=== PATIENT | male | born 1945 | race Caucasian/White ===

== ENCOUNTER 2020-06-28 06:58 | Inpatient (IN) | payer MEDICARE, OTHER ==
[~2020-06-28] VITALS: Ht 182.8 cm; Wt 85.7 kg
[2020-06-28] VITALS (8 sets, daily range): BP systolic 141–198; BP diastolic 56–93
[~2020-06-28 06:58] MED LIST: AMINOPHYLLIN200 MG PO; ASPIRIN81 M1 PO; ATENOLOL PO; ATENOLOL100 M1 PO; ATORVASTATIN CA40 M1 PO; CITALOPRAM20 MG PO; FINASTERIDE5 M1 PO; FISH OIL500 M1 PO; GABAPENTIN100 M2 PO; PRILOSEC40 MG PO; PROTONIX20 MG PO; TRAMADOL HCL50 MG PO; VALIUM5 MG PO; VITAMIN D-32000 UNI1 PO; [UNRECOGNIZED DRUG - OTHER] PO
[2020-06-28 07:58] LABS: BASO % 0.3 % (0.0-1.0); EOS % 0.3 % (1.0-4.0); HEMATOCRIT 47.2 % (42.0-52.0); LYMPH # 0.7 10*3/uL (1.3-4.4); LYMPH % 6.3 % (27.0-41.0); MEAN CELL VOLUME 92.4 fl (80.0-94.0); MEAN CORPUSCULAR HGB 30.1 pg (27.0-31.0); MEAN CORPUSCULAR HGB CONC 32.6 g/dl (33.0-37.0); MEAN PLATELET VOLUME 9.9 fl (9.6-12.3); MONO # 0.6 10*3/uL (0.1-1.0); MONO % 5.8 % (3.0-9.0); NEUT # 9.2 10*3/uL (2.3-7.9); PLATELET COUNT AUTOMATED 170 10*3/uL (130-400); RED BLOOD COUNT 5.11 10*6/uL (4.50-5.90); RED CELL DISTRI WIDTH 13.2 % (0-14.5); WHITE BLOOD COUNT 10.6 10*3/uL (4.8-10.8)
[2020-06-28 08:10] LABS: ACT PARTIAL THROMBO TIME 27.6 SECONDS (20.0-32.1)
[2020-06-28 08:11] LABS: ALBUMIN 3.4 gm/dl (3.1-4.5); ALKALINE PHOSPHATASE 122 U/L (45-117); BUN 17 mg/dl (7-24); CHLORIDE 103 mmol/L (98-107); CREATININE 1.29 mg/dL (0.70-1.30); LDH 103 U/L (87-241); POTASSIUM 5.1 mmol/L (3.5-5.1); SGOT/AST 13 IU/L (3-35); SGPT/ALT 15 U/L (12-78); SODIUM 134 mmol/L (136-145); TOTAL PROTEIN 7.3 gm/dL (6.4-8.2)
[2020-06-28 08:12] LABS: TROPONIN I < 0.015 ng/ml (<0.045)
--- NOTE | 2020-06-28 13:50 | NUR ---
PT COMPLAINS OF HEARTBURN AND REQUESTS TUMS. DR. GOODSON NOTIFIED.
--- NOTE | 2020-06-28 22:00 | NUR ---
PT MEDICATED W/VALIUM FOR C/O ANXIETY. PT ASSISTED TO BR W/WALKER. GAIT UNSTEADY, EXTREMETIES VERY STIFF. PT INCONTINENT OF URINE AND BM. INCONTINENCE CARE GIVEN AND BED LINENS CHANGED. ATENOLOL GIVEN FOR HIGH BP. WILL RECHECK IN 1 HR. CALL LIGHT IN REACH. BED ALARM ON.
--- NOTE | 2020-06-28 23:00 | NUR ---
PT RESTING QUIETLY IN BED AT THIS TIME. PRN VALIUM EFFECTIVE FOR RELIEF OF ANXIETY. PT RESTING QUIETLY IN BED VIEWED ON CAMERA. CALL LIGHT IN REACH.
--- NOTE | 2020-06-29 02:00 | NUR ---
PT RESTING QUIETLY IN BED. NO S/S OF DISTRESS NOTED. CALL LIGHT IN REACH.
[2020-06-29 06:09] LABS: BASO % 0.2 % (0.0-1.0); EOS # 0.1 10*3/uL (0.0-0.4); EOS % 0.8 % (1.0-4.0); HEMATOCRIT 44.4 % (42.0-52.0); LYMPH # 1.2 10*3/uL (1.3-4.4); LYMPH % 12.2 % (27.0-41.0); MEAN CELL VOLUME 93.1 fl (80.0-94.0); MEAN CORPUSCULAR HGB 30.6 pg (27.0-31.0); MEAN CORPUSCULAR HGB CONC 32.9 g/dl (33.0-37.0); MEAN PLATELET VOLUME 9.9 fl (9.6-12.3); MONO # 0.8 10*3/uL (0.1-1.0); MONO % 7.9 % (3.0-9.0); NEUT # 7.6 10*3/uL (2.3-7.9); NEUT % 78.6 % (47.0-73.0); PLATELET COUNT AUTOMATED 174 10*3/uL (130-400); RED BLOOD COUNT 4.77 10*6/uL (4.50-5.90); RED CELL DISTRI WIDTH 13.6 % (0-14.5); WHITE BLOOD COUNT 9.7 10*3/uL (4.8-10.8)
[2020-06-29 06:31] LABS: POTASSIUM 4.2 mmol/L (3.5-5.1)
[2020-06-29 06:40] LABS: ALBUMIN 3.3 gm/dl (3.1-4.5); CREATININE 1.45 mg/dL (0.70-1.30); TOTAL PROTEIN 7.2 gm/dL (6.4-8.2)
[2020-06-29 08:00] VITALS: BP 133/77
--- NOTE | 2020-06-29 08:38 | NUR ---
Job Setter called to speak to patient via phone. Patient states lives at home alone with his family checking in on him. There are 0 steps in the home. Physician: [facility]: [place] or [facility] for short term medications Home health services: none Patient's level of ADLs: MINIMAL ASSIST Patient has working utilities: yes DME: walker, wheelchair Follow-up physician's appointment after d/c: will be made by the hospitalist nurse director upon discharge Does patient want to access PORTAL?: no Discharge plan discussed with patient. He lives at home alone with his family checking in on him. He states he is independent in his ADLs and either ambulates with a walker or gets around in a wheelchair. Discussed home health care services and he declined. CM will continue to follow for any discharge planning needs. When medically stable he will be discharged to home. He states his daughter will provide transportation on discharge. LUZMARIA SHELBY
[2020-06-29 12:00] VITALS: BP 148/66
[2020-06-29] MEDS ORDERED: LEVOFLOXACIN500 MG PO (14:28)
[2020-06-29] MEDS ORDERED: MUCUS RELIEF600 MG PO (14:28)
--- NOTE | 2020-06-29 16:04 | NUR ---
PATIENT DISCHARGED TO HOME.
== END 2020-06-29 16:25 | disposition home or self-care (01) | DRG 194 ==
LOC: ED 06:58 → EDHOLD 09:35 → 4E 09:55
PROVIDERS: Emergency Medicine; Internal Medicine; ADMIT Internal Medicine; ATTEND Internal Medicine
DX: J18.9 Pneumonia, unspecified organism (principal); E87.1 Hypo-osmolality and hyponatremia; J45.909 Unspecified asthma, uncomplicated; Z20.828 Contact with and (suspected) exposure to other viral communicable diseases; R73.9 Hyperglycemia, unspecified; I10 Essential (primary) hypertension; E78.5 Hyperlipidemia, unspecified; F32.9 Major depressive disorder, single episode, unspecified; F41.9 Anxiety disorder, unspecified; F17.210 Nicotine dependence, cigarettes, uncomplicated; G89.29 Other chronic pain; N40.0 Benign prostatic hyperplasia without lower urinary tract symptoms; E66.9 Obesity, unspecified; Z83.3 Family history of diabetes mellitus; Z88.8 Allergy status to other drugs, medicaments and biological substances; Z82.49 Family history of ischemic heart disease and other diseases of the circulatory system; Z68.27 Body mass index [BMI] 27.0-27.9, adult

== ENCOUNTER 2022-02-22 11:41 | Emergency (ER) | payer OTHER ==
[~2022-02-22] VITALS: Ht 182.8 cm; Wt 89.4 kg
[~2022-02-22 11:41] MED LIST changes: +LEVOFLOXACIN500 MG PO; +MUCUS RELIEF600 MG PO
[2022-02-22 12:16] LABS: BASO % 0.4 % (0.0-1.0); EOS # 0.1 10*3/uL (0.0-0.4); EOS % 1.3 % (1.0-4.0); HEMATOCRIT 44.8 % (42.0-52.0); LYMPH # 0.8 10*3/uL (1.3-4.4); MEAN CORPUSCULAR HGB 30.2 pg (27.0-31.0); MEAN CORPUSCULAR HGB CONC 32.8 g/dl (33.0-37.0); MEAN PLATELET VOLUME 9.9 fl (9.6-12.3); MONO # 0.6 10*3/uL (0.1-1.0); MONO % 6.5 % (3.0-9.0); NEUT # 8.1 10*3/uL (2.3-7.9); NEUT % 83.5 % (47.0-73.0); PLATELET COUNT AUTOMATED 191 10*3/uL (130-400); RED BLOOD COUNT 4.87 10*6/uL (4.50-5.90); RED CELL DISTRI WIDTH 13.6 % (0-14.5); WHITE BLOOD COUNT 9.7 10*3/uL (4.8-10.8)
[2022-02-22 12:30] LABS: BILIRUBIN Negative (Negative); BLOOD 2+ (Negative); CLARITY Clear (Clear); COLOR Yellow (Yellow); GLUCOSE Negative (Negative); KETONE Negative (Negative); LEUKO ESTERASE 2+ (Negative); NITRITE Negative (Negative)
[2022-02-22 12:33] LABS: CREATININE 1.49 mg/dL (0.70-1.30); POTASSIUM 5.1 mmol/L (3.5-5.1); TOTAL PROTEIN 7.3 gm/dL (6.4-8.2)
[2022-02-22 12:56] LABS: BACTERIA 1+; RBC 31-40 rbc/hpf (0-2); WBC 16-20 wbc/hpf (0-5)
== END 2022-02-22 13:13 | disposition home or self-care (01) ==
LOC: ED 11:41
PROVIDERS: Emergency Medicine
DX: R33.9 Retention of urine, unspecified (principal); K59.00 Constipation, unspecified; I10 Essential (primary) hypertension; E78.5 Hyperlipidemia, unspecified; F17.210 Nicotine dependence, cigarettes, uncomplicated; Z88.8 Allergy status to other drugs, medicaments and biological substances; Z79.899 Other long term (current) drug therapy; Z79.82 Long term (current) use of aspirin

== ENCOUNTER 2023-02-09 10:25 | Emergency (ER) | payer OTHER ==
[~2023-02-09] VITALS: Ht 182.8 cm; Wt 84.8 kg
[2023-02-09] MEDS ORDERED: CYCLOBENZAPRINE10 MG PO (10:51)
[2023-02-09 11:23] LABS: BILIRUBIN Negative (Negative); BLOOD 3+ (Negative); CLARITY Cloudy (Clear); COLOR Yellow (Yellow); GLUCOSE Negative (Negative); KETONE Negative (Negative); LEUKO ESTERASE 3+ (Negative); NITRITE Negative (Negative); PH 7.5 (4.5-8.0); SPECIFIC GRAVITY 1.015 (1.001-1.030)
[2023-02-09 11:45] LABS: BACTERIA 4+; RBC TNTC rbc/hpf (0-2); WBC 41-50 wbc/hpf (0-5)
[2023-02-09] MEDS ORDERED: CEFDINIR300 MG PO (11:46)
== END 2023-02-09 12:18 | disposition home or self-care (01) ==
LOC: ED 10:25
PROVIDERS: Emergency Medicine
DX: N39.0 Urinary tract infection, site not specified (principal); M54.50 Low back pain, unspecified; B96.89 Other specified bacterial agents as the cause of diseases classified elsewhere; I10 Essential (primary) hypertension; Z88.8 Allergy status to other drugs, medicaments and biological substances; Z98.890 Other specified postprocedural states; F17.200 Nicotine dependence, unspecified, uncomplicated

== ENCOUNTER 2024-01-19 21:33 | Inpatient (IN) | payer OTHER ==
[~2024-01-19] VITALS: Ht 182.8 cm; Wt 82.6 kg
[~2024-01-19 21:33] MED LIST changes: +AMLODIPINE BESYL5 MG PO; +CEFDINIR300 MG PO; +CYCLOBENZAPRINE10 MG PO; +LISINOPRIL10 M1 PO; +METOPROLOL SUCC25 M2 PO; +NEURONTIN100 MG PO; +PEPCID20 MG PO; +VITAMIN B-12100 MCG PO; +ZITHROMAX250 MG PO
[2024-01-19 21:43] VITALS: BP 116/72
[2024-01-19 22:43] LABS: HEMATOCRIT 43.5 % (42.0-52.0); MANUAL DIFF REFLEX YES; MEAN CELL VOLUME 96.5 fl (80.0-94.0); MEAN CORPUSCULAR HGB 29.9 pg (27.0-31.0); MEAN PLATELET VOLUME 10.3 fl (9.6-12.3); PLATELET COUNT AUTOMATED 164 10*3/uL (130-400); RED BLOOD COUNT 4.51 10*6/uL (4.50-5.90); RED CELL DISTRI WIDTH 13.5 % (0-14.5); WHITE BLOOD COUNT 9.9 10*3/uL (4.8-10.8)
[2024-01-19] MEDS ORDERED: Acetaminophen/Hydrocodone 5 MG/325 MG TABLET PO ONE (22:50)
[2024-01-19 23:04] LABS: POTASSIUM 4.7 mmol/L (3.4-5.1)
[2024-01-19 23:05] LABS: BILIRUBIN Negative (Negative); BLOOD 2+ (Negative); CLARITY Clear (Clear); COLOR Yellow (Yellow); GLUCOSE Negative (Negative); KETONE Negative (Negative); LEUKO ESTERASE 2+ (Negative); NITRITE Negative (Negative)
[2024-01-19 23:06] LABS: BASOPHILS 1 % (0-1); PLATELET SUFFICIENCY NORMAL (NORMAL); TOTAL CELLS COUNTED 100 #CELLS
[2024-01-19 23:30] LABS: BACTERIA 1+; RBC 31-40 rbc/hpf (0-2); WBC 41-50 wbc/hpf (0-5)
[2024-01-20] MEDS ORDERED: FAMOTIDINE 50 ML IV ONE (01:25)
[2024-01-20] MEDS ORDERED: Ceftriaxone Sodium 1 GM/10 ML SYR IV ONE (01:25)
[2024-01-20] MEDS ORDERED: Enoxaparin Sodium 100 MG/ML SYR SC ONE (02:15)
[2024-01-20] MEDS ORDERED: AZITHROMYCIN 250 ML IV ONE (03:30)
[2024-01-20] MEDS ORDERED: ACETAMINOPHEN 325 MG TAB PO PRN (04:00)
[2024-01-20] MEDS ORDERED: BISACODYL 5 MG TAB PO PRN (04:00)
[2024-01-20] MEDS ORDERED: HEPARIN SODIUM 250 ML IV SCH (04:10)
[2024-01-20 04:45] VITALS: BP 161/70
[2024-01-20 06:30] LABS: ACT PARTIAL THROMBO TIME 41.6 SECONDS (20.0-32.1)
[2024-01-20 06:34] LABS: BASO % 0.3 % (0.0-1.0); EOS % 0.1 % (1.0-4.0); HEMATOCRIT 40.8 % (42.0-52.0); LYMPH # 0.7 10*3/uL (1.3-4.4); LYMPH % 6.8 % (27.0-41.0); MEAN CELL VOLUME 95.8 fl (80.0-94.0); MEAN CORPUSCULAR HGB 29.6 pg (27.0-31.0); MEAN CORPUSCULAR HGB CONC 30.9 g/dl (33.0-37.0); MEAN PLATELET VOLUME 10.8 fl (9.6-12.3); MONO # 0.9 10*3/uL (0.1-1.0); MONO % 8.7 % (3.0-9.0); NEUT # 8.1 10*3/uL (2.3-7.9); NEUT % 83.7 % (47.0-73.0); PLATELET COUNT AUTOMATED 170 10*3/uL (130-400); RED BLOOD COUNT 4.26 10*6/uL (4.50-5.90); RED CELL DISTRI WIDTH 13.7 % (0-14.5); WHITE BLOOD COUNT 9.7 10*3/uL (4.8-10.8)
[2024-01-20 06:42] LABS: FREE T4 1.11 ng/dl (0.89-1.76); POTASSIUM 4.1 mmol/L (3.4-5.1); TOTAL PROTEIN 6.6 gm/dL (6.0-8.0)
[2024-01-20 06:45] LABS: VITAMIN D, 25-HYDROXY 130.5 ng/mL (30-100)
[2024-01-20 08:00] VITALS: BP 150/61
[2024-01-20] MEDS ORDERED: DIAZEPAM 5 MG TAB PO PRN (09:55)
[2024-01-20] MEDS ORDERED: GABAPENTIN 100 MG CAP PO SCH (10:00)
[2024-01-20] MEDS ORDERED: amLODIPine besylate 5 MG TAB PO SCH (10:00)
[2024-01-20] MEDS ORDERED: SODIUM CHLORIDE 0.9% 1,000 ML IV ONE (10:00)
[2024-01-20] MEDS ORDERED: CYANOCOBALAMIN 100 MCG TAB PO SCH (10:00)
[2024-01-20] MEDS ORDERED: LISINOPRIL 10 MG TAB PO SCH (10:00)
[2024-01-20] MEDS ORDERED: ASPIRIN ENTERIC COATED 81 MG TAB PO SCH (10:00)
[2024-01-20] MEDS ORDERED: GUAIFENESIN 600 MG TAB ER PO SCH (10:00)
[2024-01-20] MEDS ORDERED: FAMOTIDINE 20 MG TAB PO SCH (10:00)
[2024-01-20] MEDS ORDERED: Cholecalciferol 2,000 UNIT TABLET (50 MCG) PO SCH (10:00)
[2024-01-20] MEDS ORDERED: FINASTERIDE 5 MG TAB PO SCH (10:00)
[2024-01-20] MEDS ORDERED: CITALOPRAM 20 MG TAB PO SCH (10:00)
[2024-01-20] MEDS ORDERED: CHAIR CUSHION DEVICE ONE (11:12)
[2024-01-20] MEDS ORDERED: HEEL PROTECTOR DEVICE ONE (11:12)
[2024-01-20] MEDS ORDERED: Metoprolol Tartrate 25 MG TAB PO SCH (11:40)
[2024-01-20 12:00] VITALS: BP 160/68
[2024-01-20] MEDS ORDERED: Enoxaparin Sodium 80 MG/0.8 ML SYR SC SCH (12:00)
[2024-01-20] MEDS ORDERED: IOHEXOL 350 MG/ML 100 ML VIAL IV ONE (12:55)
[2024-01-20] MEDS ORDERED: SODIUM CHLORIDE 0.9% 100 ML BAG IV ONE (12:55)
[2024-01-20 16:00] VITALS: BP 152/62
[2024-01-20] MEDS ORDERED: Technetium Tc 99M Tetrofosmi 0.23 MG KIT IJ SCH (16:15)
[2024-01-20 20:00] VITALS: BP 166/63
[2024-01-20] MEDS ORDERED: Ceftriaxone Sodium 1 GM in SYRINGE INFUSION 10 ML IV SCH (22:00)
[2024-01-20] MEDS ORDERED: AZITHROMYCIN 250 ML IV SCH (23:00)
[2024-01-21] VITALS: BP 140/64
[2024-01-21 05:58] LABS: BASO # 0.1 10*3/uL (0.0-0.1); BASO % 0.8 % (0.0-1.0); EOS # 0.1 10*3/uL (0.0-0.4); EOS % 1.9 % (1.0-4.0); HEMATOCRIT 39.2 % (42.0-52.0); LYMPH % 16.6 % (27.0-41.0); MEAN CELL VOLUME 96.8 fl (80.0-94.0); MEAN CORPUSCULAR HGB 30.4 pg (27.0-31.0); MEAN CORPUSCULAR HGB CONC 31.4 g/dl (33.0-37.0); MONO # 0.7 10*3/uL (0.1-1.0); NEUT # 4.2 10*3/uL (2.3-7.9); NEUT % 67.4 % (47.0-73.0); PLATELET COUNT AUTOMATED 154 10*3/uL (130-400); RED BLOOD COUNT 4.05 10*6/uL (4.50-5.90); RED CELL DISTRI WIDTH 13.9 % (0-14.5); WHITE BLOOD COUNT 6.2 10*3/uL (4.8-10.8)
[2024-01-21 08:00] VITALS: BP 162/62
[2024-01-21] MEDS ORDERED: Enoxaparin Sodium 40 MG/0.4 ML SYR SC SCH (10:00)
[2024-01-21 12:39] VITALS: BP 140/62
[2024-01-21] MEDS ORDERED: PERFLUTREN PROTEIN-A MICROSPHR 3 ML VIAL IV ONE (14:24)
[2024-01-21 16:00] VITALS: BP 148/62
[2024-01-21 20:00] VITALS: BP 182/75
[2024-01-22] VITALS: BP 146/74
[2024-01-22 05:38] LABS: POTASSIUM 4.7 mmol/L (3.4-5.1)
[2024-01-22 06:09] LABS: BASO % 0.5 % (0.0-1.0); EOS # 0.1 10*3/uL (0.0-0.4); HEMATOCRIT 40.8 % (42.0-52.0); LYMPH # 0.7 10*3/uL (1.3-4.4); LYMPH % 8.8 % (27.0-41.0); MEAN CELL VOLUME 96.2 fl (80.0-94.0); MEAN CORPUSCULAR HGB 30.2 pg (27.0-31.0); MEAN CORPUSCULAR HGB CONC 31.4 g/dl (33.0-37.0); MEAN PLATELET VOLUME 11.2 fl (9.6-12.3); MONO # 0.9 10*3/uL (0.1-1.0); MONO % 11.3 % (3.0-9.0); NEUT # 6.3 10*3/uL (2.3-7.9); NEUT % 78.2 % (47.0-73.0); PLATELET COUNT AUTOMATED 173 10*3/uL (130-400); RED BLOOD COUNT 4.24 10*6/uL (4.50-5.90); RED CELL DISTRI WIDTH 13.5 % (0-14.5); WHITE BLOOD COUNT 8.1 10*3/uL (4.8-10.8)
[2024-01-22 08:00] VITALS: BP 175/74
[2024-01-22] MEDS ORDERED: Piperacillin Sodium/Tazobact 50 ML IV SCH (10:05)
[2024-01-22 12:00] VITALS: BP 152/70
[2024-01-22 16:00] VITALS: BP 152/63
[2024-01-22 20:00] VITALS: BP 196/81
[2024-01-22 20:30] VITALS: BP 168/78
[2024-01-22] MEDS ORDERED: hydrALAZINE hydrochloride 20 MG/ML VIAL IV ONE (20:35)
[2024-01-23] VITALS: BP 164/66
[2024-01-23 01:15] VITALS: BP 148/62
[2024-01-23 06:38] LABS: BUN 24 mg/dl (9-23); CHLORIDE 105 mmol/L (98-107)
[2024-01-23 06:41] LABS: POTASSIUM 3.7 mmol/L (3.4-5.1)
[2024-01-23 07:02] LABS: BASO % 0.7 % (0.0-1.0); EOS # 0.2 10*3/uL (0.0-0.4); EOS % 3.8 % (1.0-4.0); HEMATOCRIT 40.9 % (42.0-52.0); LYMPH % 16.7 % (27.0-41.0); MEAN CORPUSCULAR HGB 29.7 pg (27.0-31.0); MEAN CORPUSCULAR HGB CONC 31.5 g/dl (33.0-37.0); MEAN PLATELET VOLUME 10.3 fl (9.6-12.3); MONO # 0.7 10*3/uL (0.1-1.0); MONO % 12.1 % (3.0-9.0); NEUT % 66.4 % (47.0-73.0); PLATELET COUNT AUTOMATED 188 10*3/uL (130-400); RED BLOOD COUNT 4.35 10*6/uL (4.50-5.90); RED CELL DISTRI WIDTH 13.4 % (0-14.5)
[2024-01-23 08:00] VITALS: BP 190/77
[2024-01-23] MEDS ORDERED: LISINOPRIL 20 MG TAB PO SCH (10:00)
[2024-01-23 12:00] VITALS: BP 165/64
[2024-01-23] MEDS ORDERED: Cyclobenzaprine Hydrochlorid 10 MG TAB PO PRN (13:10)
[2024-01-23 16:00] VITALS: BP 142/61
[2024-01-23 20:00] VITALS: BP 122/57
[2024-01-24] VITALS: BP 149/57
[2024-01-24 06:34] LABS: BASO % 0.4 % (0.0-1.0); EOS # 0.3 10*3/uL (0.0-0.4); HEMATOCRIT 40.5 % (42.0-52.0); LYMPH % 14.7 % (27.0-41.0); MEAN CELL VOLUME 93.5 fl (80.0-94.0); MEAN CORPUSCULAR HGB CONC 32.1 g/dl (33.0-37.0); MEAN PLATELET VOLUME 10.9 fl (9.6-12.3); MONO # 0.8 10*3/uL (0.1-1.0); MONO % 11.2 % (3.0-9.0); NEUT # 4.7 10*3/uL (2.3-7.9); NEUT % 69.4 % (47.0-73.0); PLATELET COUNT AUTOMATED 207 10*3/uL (130-400); RED BLOOD COUNT 4.33 10*6/uL (4.50-5.90); RED CELL DISTRI WIDTH 13.4 % (0-14.5); WHITE BLOOD COUNT 6.8 10*3/uL (4.8-10.8)
[2024-01-24 08:00] VITALS: BP 155/70
[2024-01-24 12:00] VITALS: BP 129/62
[2024-01-24 16:00] VITALS: BP 153/60
[2024-01-24 20:00] VITALS: BP 165/64
[2024-01-24] MEDS ORDERED: LEVOFLOXACIN750 M2 PO (21:56)
[2024-01-25] VITALS: BP 155/67
[2024-01-25 06:12] LABS: BASO # 0.1 10*3/uL (0.0-0.1); BASO % 0.7 % (0.0-1.0); EOS # 0.4 10*3/uL (0.0-0.4); EOS % 4.9 % (1.0-4.0); HEMATOCRIT 42.6 % (42.0-52.0); LYMPH # 1.3 10*3/uL (1.3-4.4); LYMPH % 17.4 % (27.0-41.0); MEAN CELL VOLUME 95.3 fl (80.0-94.0); MEAN CORPUSCULAR HGB CONC 31.5 g/dl (33.0-37.0); MEAN PLATELET VOLUME 10.5 fl (9.6-12.3); MONO # 0.7 10*3/uL (0.1-1.0); NEUT # 4.9 10*3/uL (2.3-7.9); NEUT % 66.5 % (47.0-73.0); PLATELET COUNT AUTOMATED 237 10*3/uL (130-400); RED BLOOD COUNT 4.47 10*6/uL (4.50-5.90); RED CELL DISTRI WIDTH 13.3 % (0-14.5); WHITE BLOOD COUNT 7.4 10*3/uL (4.8-10.8)
[2024-01-25 07:11] LABS: POTASSIUM 4.2 mmol/L (3.4-5.1)
[2024-01-25 08:00] VITALS: BP 194/65
[2024-01-25 11:00] VITALS: BP 132/86
[2024-01-25] MEDS ORDERED: LISINOPRIL20 MG PO (11:00)
[2024-01-25] MEDS ORDERED: LOPRESSOR25 MG PO (11:00)
[2024-01-25 11:59] VITALS: BP 132/86
== END 2024-01-25 14:50 | disposition home health service (06) | DRG 682 ==
LOC: ED 21:33 → 4E 01-20 03:35 → EDHOLD 01-20 03:35 → 4E 01-20 04:28
PROVIDERS: Emergency Medicine; Internal Medicine; Student in an Organized Health Care Education/Training Program; ADMIT Family Medicine; ATTEND Family Medicine
DX: N17.0 Acute kidney failure with tubular necrosis (principal); J96.01 Acute respiratory failure with hypoxia; N30.01 Acute cystitis with hematuria; I13.0 Hypertensive heart and chronic kidney disease with heart failure and stage 1 through stage 4 chronic kidney disease, or unspecified chronic kidney disease; J98.4 Other disorders of lung; Z51.5 Encounter for palliative care; N40.0 Benign prostatic hyperplasia without lower urinary tract symptoms; Z66 Do not resuscitate; I48.91 Unspecified atrial fibrillation; E78.5 Hyperlipidemia, unspecified; N18.9 Chronic kidney disease, unspecified; F17.210 Nicotine dependence, cigarettes, uncomplicated; L89.890 Pressure ulcer of other site, unstageable; D64.9 Anemia, unspecified; I50.9 Heart failure, unspecified; B96.5 Pseudomonas (aeruginosa) (mallei) (pseudomallei) as the cause of diseases classified elsewhere; E78.2 Mixed hyperlipidemia; I49.1 Atrial premature depolarization; I49.3 Ventricular premature depolarization; Z98.1 Arthrodesis status; Z88.1 Allergy status to other antibiotic agents; Z88.8 Allergy status to other drugs, medicaments and biological substances; Z82.49 Family history of ischemic heart disease and other diseases of the circulatory system; Z83.3 Family history of diabetes mellitus; Z79.82 Long term (current) use of aspirin; Z79.899 Other long term (current) drug therapy

== ENCOUNTER 2024-05-19 15:13 | Emergency (ER) | payer OTHER ==
[~2024-05-19] VITALS: Ht 182.8 cm; Wt 81.6 kg
[~2024-05-19 15:13] MED LIST changes: +LEVOFLOXACIN750 M2 PO; +LISINOPRIL20 MG PO; +LOPRESSOR25 MG PO
[2024-05-19 15:54] VITALS: BP 121/44
[2024-05-19] MEDS ORDERED: SODIUM CHLORIDE 0.9% 1,000 ML IV ONE (16:10)
[2024-05-19] MEDS ORDERED: IOHEXOL 300 MG/ML 100 ML VIAL IV ONE (16:15)
[2024-05-19 16:31] LABS: BASO % 0.6 % (0.0-1.0); EOS # 0.2 10*3/uL (0.0-0.4); EOS % 3.4 % (1.0-4.0); HEMATOCRIT 40.9 % (42.0-52.0); LYMPH # 1.3 10*3/uL (1.3-4.4); LYMPH % 18.4 % (27.0-41.0); MEAN CELL VOLUME 96.7 fl (80.0-94.0); MEAN CORPUSCULAR HGB 30.5 pg (27.0-31.0); MEAN CORPUSCULAR HGB CONC 31.5 g/dl (33.0-37.0); MEAN PLATELET VOLUME 9.9 fl (9.6-12.3); MONO # 0.7 10*3/uL (0.1-1.0); MONO % 9.9 % (3.0-9.0); NEUT # 4.8 10*3/uL (2.3-7.9); NEUT % 67.4 % (47.0-73.0); PLATELET COUNT AUTOMATED 219 10*3/uL (130-400); RED BLOOD COUNT 4.23 10*6/uL (4.50-5.90); RED CELL DISTRI WIDTH 13.3 % (0-14.5); WHITE BLOOD COUNT 7.1 10*3/uL (4.8-10.8)
[2024-05-19 16:46] LABS: ACT PARTIAL THROMBO TIME 27.6 SECONDS (20.0-32.1)
[2024-05-19 16:52] LABS: ALKALINE PHOSPHATASE 99 U/L (46-116); BUN 19 mg/dl (9-23); CHLORIDE 107 mmol/L (98-107); LIPASE 50 U/L (12-53); POTASSIUM 5.1 mmol/L (3.4-5.1); SGPT/ALT 9 U/L (5-49)
[2024-05-19] MEDS ORDERED: Ceftriaxone Sodium 1 GM/10 ML SYR IV ONE ×2 (18:40→19:25)
[2024-05-19 19:35] VITALS: BP 118/68
[2024-05-19 22:22] VITALS: BP 124/76
[2024-05-20] MEDS ORDERED: Ceftriaxone Sodium 20 ML IV SCH (19:00)
== END 2024-05-19 22:29 | disposition short-term general hospital (02) ==
LOC: ED 15:13 → EDHOLD 18:47 → ED 22:29
PROVIDERS: Internal Medicine
DX: N12 Tubulo-interstitial nephritis, not specified as acute or chronic (principal); R53.1 Weakness; I10 Essential (primary) hypertension; Z88.8 Allergy status to other drugs, medicaments and biological substances; Z98.890 Other specified postprocedural states

== ENCOUNTER 2024-08-22 04:33 | Emergency (ER) | payer OTHER ==
[~2024-08-22] VITALS: Ht 182.8 cm; Wt 81.6 kg
[~2024-08-22 04:33] MED LIST changes: +CIPRO500 MG PO; +FLOMAX0.4 MG PO
[2024-08-22] MEDS ORDERED: METHOCARBAMOL 500 MG TAB PO ONE (04:45)
[2024-08-22] MEDS ORDERED: Ketorolac Tromethamine 30 MG/ML VIAL IM ONE (04:45)
[2024-08-22] MEDS ORDERED: NAPROXEN250 MG PO (04:47)
[2024-08-22] MEDS ORDERED: METHOCARBAMOL500 M1 PO (04:47)
== END 2024-08-22 05:05 | disposition home or self-care (01) ==
LOC: ED 04:33
DX: S16.1XXA Strain of muscle, fascia and tendon at neck level, initial encounter (principal); I10 Essential (primary) hypertension; F17.210 Nicotine dependence, cigarettes, uncomplicated; Z88.8 Allergy status to other drugs, medicaments and biological substances; Z98.890 Other specified postprocedural states; X58.XXXA Exposure to other specified factors, initial encounter; Y93.89 Activity, other specified; Y92.009 Unspecified place in unspecified non-institutional (private) residence as the place of occurrence of the external cause; Y99.8 Other external cause status